=== PATIENT | male | born 1935 | race Caucasian/White ===

== ENCOUNTER 2017-04-04 10:07 | Emergency (ER) | payer MEDICARE ==
[~2017-04-04] VITALS: Ht 180.3 cm; Wt 65.8 kg
[~2017-04-04 10:07] MED LIST: AMLO10TA82 PO; ASP81TEC PO; ATRV10T PO; CARV6.252 PO; HYDR12.56 PO; IBUP-30 PO; NAPR220C PO; OMEG-12 PO; SERT50TA9 PO; UBID100C17 PO
--- NOTE | 2017-04-04 10:57 | ED Fall/Injury ---
General Chief Complaint: Trauma-Non Activation Stated Complaint: FALL Nursing Triage Note: AMBULATED TO ROOM 08 WITH COMPLAINTS OF TRIPPING AND FALLING ET HITTING HIS HEAD. DENIES NECK PAIN OR LOC. PT STATES HE TAKES ASA DAILY. Source: patient, family Exam Limitations: no limitations History of Present Illness Time seen by provider: 10:43 Initial Comments Here with report of tripping and falling this morning. Apparently he tripped over some fencing and fell face first. Does have abrasions to the right side of the face as well as the right and left forearm area and right knee. All of the abrasions are superficial. Reports tetanus is up-to-date. Denies loss of consciousness. Denies neck pain. Occurred: this morning (approximately 1-2 hours ago) Severity: mild Injuries/Pain Location: face, upper extremity, lower extremity Context: tripped Loss of Consciousness: no loss of consciousness Associated Symptoms (Fall): No Denies Symptoms, Headache (mild), No Lightheadedness, No Nausea/Vomiting, No Neck Pain, No Shortness of Air, No Vision Changes Allergies and Home Medications Allergies Coded Allergies: Penicillins (Verified Allergy, 03/01/12) Uncoded Allergies: narcotics (Adverse Reaction, Intermediate, nausea/vomitting, 03/01/12) Home Medications Aspirin 81 Mg Tabec, 81 MG PO DAILY, (Reported) daily at noon Atorvastatin Calcium 10 Mg Tablet, 10 MG PO DAILY, (Reported) daily at HS Carvedilol 6.25 Mg Tablet, 6.25 MG PO BID, (Reported) Naproxen Sodium 220 Mg Capsule, 375 MG PO BID, (Reported) [place]-3/Dha/Epa/Fish Oil 1 Each Capsule.dr, 1,000 MG PO TID, (Reported) Sertraline Hcl 50 Mg Tablet, 50 MG PO DAILY, (Reported) daily at noon Constitutional: see HPI, No chills, No fever Eyes: No Symptoms Reported Ears, Nose, Mouth, Throat: no symptoms reported Respiratory: no symptoms reported Cardiovascular: no symptoms reported Gastrointestinal: no symptoms reported, No nausea, No vomiting Genitourinary: no symptoms reported Musculoskeletal: No back pain, No neck pain Skin: see HPI, change in color (contusion to bilateral forearms and face near the right eye and forehead.), lesions (abrasions) Psychiatric/Neurological: Denies Numbness, Denies Tingling, Denies Weakness All Other Systems Reviewed Negative Unless Noted: Yes Past Rnhgdwb-Mcvnhj-Xxgscb Hx Patient Social History Alcohol Use: Denies Use Recreational Drug Use: No Smoking Status: Never a Smoker Recent Foreign Travel: No Contact w/Someone Who Travel: No Recent Infectious Disease Expo: No Immunizations Up To Date Date of Influenza Vaccine: Jun 27, 2012 Surgeries HX Surgeries: Yes Surgeries: Abdominal, Bowel Surgery, CABG, Gallbladder, Orthopedic, Tonsillectomy Respiratory Hx Respiratory Disorders: No Cardiovascular Hx Cardiac Disorders: No Cardiac Disorders: Hypertension Genitourinary Hx Genitourinary Disorders: No Gastrointestinal Hx Gastrointestinal Disorders: No Cancer Hx Cancer: No Reviewed Nursing Assessment Reviewed/Agree w Nursing PMH: Yes Family Medical History Significant Family History: No Pertinent Family Hx Physical Exam Vital Signs Vital Sign - Last 12Hours 04/04/17 10:43 Temp 98.0 Pulse 90 Resp 18 B/P (MAP) 117/77 Pulse Ox 95 Capillary Refill : Less Than 3 Seconds General Appearance: WD/WN, no apparent distress HEENT: PERRL/EOMI, pharynx normal Neck: full range of motion, supple Cardiovascular: regular rate, rhythm, no murmur Respiratory: lungs clear, normal breath sounds Gastrointestinal: non tender, soft Back: normal inspection, no CVA tenderness, no vertebral tenderness Extremities: non-tender, normal inspection Neurologic/Psychiatric: alert, oriented x 3 Skin: warm/dry, ecchymosis [place] Coma Score Best Eye Response: (4) Open Spontaneously Best Verbal Response: (5) Oriented Best Motor Response: (6) Obeys Commands Progress/Results/Core Measures Results/Orders My Orders Orders - SAMRA RANDHAWA MD Ct Head/Cervical Spine Wo (04/04/17 10:48) Vital Signs/I&O Vital Sign - Last 12Hours 04/04/17 10:43 Temp 98.0 Pulse 90 Resp 18 B/P (MAP) 117/77 Pulse Ox 95 Blood Pressure Mean: 90 Progress Note : Progress Note Seen and evaluated. CT head and neck ordered. Wounds cleaned and covered with antibiotic and Band-Aid. No acute appearing findings noted on CT scan. Discharged home with return precautions. Patient verbalize understanding instructions and agreement with plan. Diagnostic Imaging Diagonstic Imaging: CT Plain Films/CT/US/NM/MRI: c-spine, head Comments NAME: JERRICA DIAS [facility] REC#: [id number] PT STATUS: REG ER : 1935 PHYSICIAN: SAMRA RANDHAWA MD ADMIT DATE: 04/04/17/ER Draft Date of Exam:04/04/17 CT HEAD/CERVICAL SPINE WO PROCEDURE: CT head and CT cervical spine without contrast. TECHNIQUE: Multiple contiguous axial images were obtained through the brain and cervical spine without the use of intravenous contrast. Sagittal and coronal reformations through the cervical spine were then performed. INDICATION: Fell head and neck pain There are no prior studies available for comparison. CT HEAD: There is no mass, shift of midline or hemorrhage to suggest an acute intracranial abnormality. There is no sign of an asymmetric hyperdense vessel. The ventricles are not abnormally dilated. There are senescent changes evident including cortical atrophy and periventricular encephalomalacia. There is soft tissue edema over the right globe and right frontal bone. The bone windows show no sign of a fracture in this area. The right globe itself is unremarkable. No other fracture is identified. The left globe is unremarkable. There is mucosal thickening of the ethmoid sinuses. The sinuses are otherwise generally clear although the maxillary sinuses were not visualized in their entirety. IMPRESSION: 1. There is soft tissue edema anterior to the right globe and to the right frontal bone. There is no sign of a skull fracture and there is no acute intracranial abnormality identified. 2. If clinical concern regarding an acute abnormality persists, then MRI would be recommended for further study. CT CERVICAL SPINE: The reconstructed parasagittal images show approximately 4 MM of anterior translation of C3 with respect to C4. There is also fairly severe degenerative disc and bony disease at C4-5, C5-6 and C6-7. There does not appear to have been any significant high-grade stenosis at any level but there is narrowing of the neural foramen bilaterally at C6-7 and on the right at C4-5. There is no fracture or acute bony abnormality appreciated. There is no sign of retropharyngeal edema. There does appear to have been a prior right carotid endarterectomy. The thyroid gland was not visualized in its entirety. The lung apices were not included on this exam. IMPRESSION: 1.There is no evidence for an acute bony abnormality. 2. 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 Dictated on workstation # [id number] Dict: 04/04/17 1116 Trans: 04/04/17 1127 [facility] [id number] Interpreted by: YANIRA BARKLEY MD Electronically signed by: Departure Impression Impression: Primary Impression: Head injury Qualified Codes: S09.90XA - Unspecified injury of head, initial encounter Additional Impressions: Facial contusion Qualified Codes: S00.83XA - Contusion of other part of head, initial encounter Multiple skin tears Disposition: HOME, SELF-CARE Condition: Improved Departure-Patient Inst. Decision time for Depature: 11:31 Referrals: WENCESLAO RICHEY MD (PCP/Family) Primary Care Physician Patient Instructions: Contusion (DC), Minor Head Injury (DC), Skin Abrasions ( DC) Add. Discharge Instructions: All discharge instructions reviewed with patient and/or family. Voiced understanding. Continue home medications as prescribed. Follow-up with your Dr. in a few days for recheck as needed. You may use antibiotic ointment and a Band-Aid over the skin tear and abrasions. You may use ice packs to the contusion on the face to decrease swelling. Return for worse pain, fever, vomiting, weakness, breathing problems or other concerns as needed. SAMRA RANDHAWA MD Apr 04, 2017 10:57
--- NOTE | 2017-04-04 11:27 | Diagnostic Imaging Report ---
PROCEDURE: CT head and CT cervical spine without contrast. TECHNIQUE: Multiple contiguous axial images were obtained through the brain and cervical spine without the use of intravenous contrast. Sagittal and coronal reformations through the cervical spine were then performed. INDICATION: Fell head and neck pain There are no prior studies available for comparison. CT HEAD: There is no mass, shift of midline or hemorrhage to suggest an acute intracranial abnormality. There is no sign of an asymmetric hyperdense vessel. The ventricles are not abnormally dilated. There are senescent changes evident including cortical atrophy and periventricular encephalomalacia. There is soft tissue edema over the right globe and right frontal bone. The bone windows show no sign of a fracture in this area. The right globe itself is unremarkable. No other fracture is identified. The left globe is unremarkable. There is mucosal thickening of the ethmoid sinuses. The sinuses are otherwise generally clear although the maxillary sinuses were not visualized in their entirety. IMPRESSION: 1. There is soft tissue edema anterior to the right globe and to the right frontal bone. There is no sign of a skull fracture and there is no acute intracranial abnormality identified. 2. If clinical concern regarding an acute abnormality persists, then MRI would be recommended for further study. CT CERVICAL SPINE: The reconstructed parasagittal images show approximately 4 MM of anterior translation of C3 with respect to C4. There is also fairly severe degenerative disc and bony disease at C4-5, C5-6 and C6-7. There does not appear to have been any significant high-grade stenosis at any level but there is narrowing of the neural foramen bilaterally at C6-7 and on the right at C4-5. There is no fracture or acute bony abnormality appreciated. There is no sign of retropharyngeal edema. There does appear to have been a prior right carotid endarterectomy. The thyroid gland was not visualized in its entirety. The lung apices were not included on this exam. IMPRESSION: 1.There is no evidence for an acute bony abnormality. 2. 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 Dictated by: Dictated on workstation # [id number]
[2017-04-04 11:36] VITALS: BP 100/80
--- OUTSIDE RECORDS SUMMARY | 2017-04-06 11:21 | XMS REPORT | Continuity of Care Document ---
Author Author [facility] Organization [facility] Address Unknown Phone Unavailable Allergies Medications Problems Procedures Results Encounters ACCT No. Visit Date/Time Discharge Status Pt. Type Provider Facility Loc./Unit Complaint [id number] 03/05/2014 10:44:00 2013 09:39:00 [facility] [id number] 10/12/2013 11:09:00 2013 00:01:00 [facility]
== END 2017-04-04 11:36 | disposition home or self-care (01) ==
LOC: EDUNIT# 10:07 → ER 10:09
DX: S50.12XA Contusion of left forearm, initial encounter; Z79.82 Long term (current) use of aspirin; I10 Essential (primary) hypertension; Z95.1 Presence of aortocoronary bypass graft; S50.11XA Contusion of right forearm, initial encounter; S00.83XA Contusion of other part of head, initial encounter; S09.90XA Unspecified injury of head, initial encounter; W01.0XXA Fall on same level from slipping, tripping and stumbling without subsequent striking against object, initial encounter
CPT/HCPCS: 70450; 72125; 99282

== ENCOUNTER → 2017-04-30 | Outpatient (CLI) | payer MEDICARE ==
--- NOTE | 2017-04-30 20:11 | Diagnostic Imaging Report ---
Left breast ultrasound. INDICATION: Left breast lump. FINDINGS: The four quadrants and retroareolar region were scanned. In the retroareolar area, there is a hypoechoic lesion measuring 1.7 x 0.8 x 1.5 cm. No internal vascularity is seen. It is favored to be related to gynecomastia. No definite suspicious mass, shadowing, or internal vascularity seen. IMPRESSION: 1.7 cm hypoechoic retroareolar lesion is probably related to gynecomastia. Correlate clinically and with followup ultrasound and mammogram in three months to ensure no adverse development is recommended. ACR BI-RADS Category 3: Probably benign findings. Dictated by: Dictated on workstation # [id number]
--- NOTE | 2017-04-30 20:13 | Diagnostic Imaging Report ---
Diagnostic left breast mammogram with tomography. INDICATION: Left breast lump. The current study was also evaluated with a Computer Aided Detection (CAD) system. No prior studies are available for comparison. FINDINGS: There are retroareolar soft tissue densities with appearance suggestive of fibroglandular tissue likely related to gynecomastia. Right MLO view is obtained for comparison and demonstrates no underlying lesion. IMPRESSION: Retroareolar soft tissue density in the left breast is probably related to gynecomastia. Ultrasound evaluation pending. ACR BI-RADS Category 0: Incomplete. (Needs additional imaging evaluation). Result letter will be mailed to the patient. Note: At least 10% of breast cancer is not imaged by mammography. Dictated by: Dictated on workstation # [id number]
== END ==
LOC: RAD 07:46
PROVIDERS: ATTEND Family Medicine
DX: N63 Unspecified lump in breast (principal)
CPT/HCPCS: 76641

== ENCOUNTER → 2018-01-31 | Outpatient (CLI) | payer MEDICARE ==
--- NOTE | 2018-01-31 15:36 | Diagnostic Imaging Report ---
EXAMINATION: Left humerus at 09:35 a.m. INDICATION: Pain. FINDINGS: AP and lateral views were obtained. There is no fracture, dislocation, or acute bony abnormality evident. There is moderate degenerative disease of the shoulder joint and mild degenerative disease of the elbow. The soft tissues are unremarkable. There is no sign of a radiopaque foreign body. IMPRESSION: There is no evidence for an acute bony abnormality or for a radiopaque foreign body. Dictated by: Dictated on workstation # [id number]
== END ==
LOC: RAD 08:53
PROVIDERS: ATTEND Internal Medicine Critical Care Medicine
DX: M79.602 Pain in left arm (principal)
CPT/HCPCS: 73060

== ENCOUNTER → 2018-02-02 | Outpatient (CLI) | payer MEDICARE ==
--- NOTE | 2018-02-02 13:01 | Diagnostic Imaging Report ---
PROCEDURE: US venous upper extremity left. TECHNIQUE: Multiple realtime grayscale images were obtained of left upper extremity in various projections. Duplex Doppler and color Doppler images were also obtained. INDICATION: Left arm pain. COMPARISON: There are no prior studies available for comparison. FINDINGS: There is generally good blood flow and compressibility at all levels of the deep venous system. There is no evidence for deep venous thrombosis. IMPRESSION: There is no evidence for deep venous thrombosis in the left upper extremity. Dictated by: Dictated on workstation # [id number]
== END ==
LOC: RAD 08:47
PROVIDERS: ATTEND Internal Medicine Critical Care Medicine
DX: M79.602 Pain in left arm (principal); I48.91 Unspecified atrial fibrillation; I10 Essential (primary) hypertension; E78.00 Pure hypercholesterolemia, unspecified; Z95.1 Presence of aortocoronary bypass graft

== ENCOUNTER 2018-02-09 11:12 | Outpatient (RCR) | payer MEDICARE | END 2018-02-09 12:15 | disposition home or self-care (01) | PROVIDERS: ATTEND Family Medicine | DX: R53.1 Weakness (principal); I48.91 Unspecified atrial fibrillation ==

== ENCOUNTER → 2019-03-15 | Outpatient (CLI) | payer MEDICARE ==
--- NOTE | 2019-03-15 13:30 | Diagnostic Imaging Report ---
INDICATION: Dyspnea. COMPARISON: Study compared to 10/21/2018. FINDINGS: There is marked gaseous dilatation of upper abdominal viscus, presumed the colon from the hepatic through splenic flexures. This elevates both hemidiaphragms, crowds the lung markings, and results in some basilar atelectasis with diaphragmatic elevation, greater left than right. Supine and upright abdominal radiographs recommended to assess for air-fluid levels as distal impaction or obstruction could not be excluded. IMPRESSION: There is poor lung expansion owing to diaphragmatic elevation secondary to gaseous dilatation of upper abdominal viscus, presumed colon. There is resultant basilar atelectasis. The chest itself is otherwise intrinsically normal. Distal large bowel obstruction cannot be excluded. Dictated by: Dictated on workstation # [id number]
== END ==
LOC: RAD 08:19
PROVIDERS: ATTEND Internal Medicine Critical Care Medicine
DX: I34.0 Nonrheumatic mitral (valve) insufficiency (principal); R14.0 Abdominal distension (gaseous); J98.11 Atelectasis; I10 Essential (primary) hypertension
CPT/HCPCS: 71046